=== PATIENT | male | born 1985 | race Caucasian/White ===

== ENCOUNTER 2020-09-25 21:11 | Emergency (ER) | payer SELFPAY ==
[~2020-09-25] VITALS: Ht 170.2 cm; Wt 71.7 kg
[2020-09-25 21:20] VITALS: BP 117/56
[2020-09-25] MEDS ORDERED: CEPHALEXIN MONOHYDRATE 500 MG CAPSULE PO ONE ×2 (22:17→22:30)
[2020-09-25] MEDS ORDERED: TDAP [DIPH/PERTUSSIS/TET] 0.5 ML VIAL IM ONE ×2 (22:17→22:30)
== END 2020-09-25 22:50 | disposition home or self-care (01) ==
LOC: ER 21:13
DX: L03.114 Cellulitis of left upper limb (principal); R53.81 Other malaise
CPT/HCPCS: 90715